=== PATIENT | male | born 2000 | race Caucasian/White ===

== ENCOUNTER 2024-11-20 10:31 | Outpatient (CLI) | payer BC, OTHER, SELFPAY | END 2024-11-20 23:59 | disposition home or self-care (01) | DX: E84.9 Cystic fibrosis, unspecified (principal) | CPT/HCPCS: 96523; A4216 ==

== ENCOUNTER 2024-12-16 12:38 | Outpatient (CLI) | payer BC, OTHER, SELFPAY | END 2024-12-16 23:59 | disposition home or self-care (01) | DX: Z45.2 Encounter for adjustment and management of vascular access device (principal); E84.9 Cystic fibrosis, unspecified | CPT/HCPCS: 96523 ==

== ENCOUNTER 2025-01-21 11:09 | Outpatient (CLI) | payer BC, OTHER, SELFPAY ==
[2025-01-21 11:53] LABS: Bacteria 0 SEEN /hpf (None Seen); Mucous, Urine 0 SEEN /hpf (<or=2+); Squamous Epithelial Cells - UA 0 SEEN /hpf (0-5)
[2025-01-21 11:57] LABS: Color, Urine Yellow (Yellow); Glucose, Dipstick Normal (Normal); Ketone-Dipstick Negative (Negative); Leukocyte Esterase-Dipstick 25 /ul (Negative); Nitrite-Dipstick Negative (Negative); Occult Blood-Urine 25 /ul (Negative); Protein-Dipstick 15 mg/dl (Negative); Specific Gravity, Urine 1.015 (1.002-1.030); Urine Bilirubin Dipstick Negative (Negative); Urine Clarity Clear (Clear); Urine Urobilinogen Normal (Normal)
[2025-01-21 11:58] LABS: Absolute Lymphocyte Count 1.81 X10^3/uL (0.83-4.51); Absolute Neutrophil Count 5.2 X10^3/uL (2.0-7.7); Basophil# 0.05 X10^3/uL; Basophil% 0.6 % (0-1); Eosinophil# 0.22 X10^3/uL; Eosinophils% 2.7 % (0-5); Hematocrit 46.8 % (40-54); Hemoglobin 16.4 g/dL (13.0-16.5); Lymphocyte # 1.81 X10^3/ul (0.83-4.51); Lymphocyte % 22.5 % (19-41); Mean Corpuscular Volume 91.4 fL (80-94); Mean Platelet Vol. 10.3 fl (6.2-12.0); Monocyte# 0.75 X10^3/uL; Monocyte% 9.3 % (0-10); NRBC Flagged by Analyzer 0 % (0-5); Neutrophil # 5.19 X10^3/uL (2.7-7.7); Neutrophil % 64.7 % (47-70); Platelet Count 256 K/mm3 (150-450); RBC Distribution Width SD 43.6 fl (35.1-43.9); Red Blood Count 5.12 M/mm3 (4.6-6.2)
[2025-01-21 12:05] LABS: International Normalized Ratio 1.1
[2025-01-21 12:06] LABS: Red Blood Cells-Urine 0-5 SEEN /hpf (0-5); White Blood Cells 0-5 SEEN /hpf (0-5)
[2025-01-21 12:30] LABS: Hemoglobin A1c 6.1 % (<=5.6)
[2025-01-21 12:43] LABS: ALB/GLOB Ratio 1.5 RATIO (0.9-2.4); AST(SGOT) 29 U/L (<=37); Alanine Aminotransfer ALT/SGPT 24 U/L (<=46); Albumin, Serum 4.3 g/dL (3.5-5.0); Alkaline Phosphatase 101 U/L (40-129); Anion Gap 11 (5-15); BUN 11 mg/dL (4-19); BUN/Creat Ratio 13.7 RATIO (10-20); Calcium,Total 9.1 mg/dL (7.6-11.0); Carbon Dioxide 22.8 mmol/L (21.0-32.0); Chloride 105 mmol/L (98-108); Cholesterol 117 mg/dL (<=190); Creatinine, Serum 0.83 mg/dL (0.70-1.20); EST Glomerular Filtration Rate 127 (>60); Globulin 2.8 g/dL (2.2-4.2); Glucose 86 mg/dL (70-99); High Density Lipoprotein 53 mg/dL; Low Density Lipoprotein Calc. 48 mg/dL; Potassium 4.1 mmol/L (3.3-5.1); Protein, Total 7.1 g/dL (5.9-8.4); Sodium Level 138 mmol/L (133-145); Total Bilirubin 0.72 mg/dL (0.00-1.30); Triglycerides 78 mg/dL; Very Low Density Lipoprotein 16 mg/dL (5-40); Vitamin D,25 Hydroxy 29.3 ng/mL (30-100)
== END 2025-01-21 23:59 | disposition home or self-care (01) ==
LOC: MEDOUTP 11:12
DX: Z45.2 Encounter for adjustment and management of vascular access device (principal); E84.9 Cystic fibrosis, unspecified
CPT/HCPCS: 36591; 80053; 80061; 81001; 82306; 82785; 82977; 83036; 84403; 85025; 85610; 85730; A4216

== ENCOUNTER 2025-03-05 09:29 | Outpatient (CLI) | payer BC, OTHER, SELFPAY ==
[2025-03-05 11:02] LABS: Glucose GTT- Fasting 95 mg/dL (70-99)
[2025-03-05 13:40] LABS: Bacteria 0 SEEN /hpf (None Seen); Squamous Epithelial Cells - UA 0 SEEN /hpf (0-5)
[2025-03-05 13:45] LABS: Color, Urine Yellow (Yellow); Glucose, Dipstick Normal (Normal); Ketone-Dipstick Negative (Negative); Leukocyte Esterase-Dipstick Negative /ul (Negative); Nitrite-Dipstick Negative (Negative); Occult Blood-Urine 10 /ul (Negative); Protein-Dipstick Negative (Negative); Specific Gravity, Urine 1.015 (1.002-1.030); Urine Bilirubin Dipstick Negative (Negative); Urine Clarity Clear (Clear); Urine Urobilinogen Normal (Normal)
[2025-03-05 14:00] LABS: Glucose GTT- 2 Hour 123 mg/dL (70-120)
[2025-03-05 14:07] LABS: Mucous, Urine RARE /hpf (<or=2+); Red Blood Cells-Urine 0-5 SEEN /hpf (0-5); White Blood Cells 0-5 SEEN /hpf (0-5)
== END 2025-03-05 23:59 | disposition home or self-care (01) ==
LOC: MEDOUTP 09:29
DX: E84.9 Cystic fibrosis, unspecified (principal)
CPT/HCPCS: 36591; 81001; 82951; 82952; 84403; A4216